=== PATIENT | male | born 1995 | race Caucasian/White ===

== ENCOUNTER 2018-01-26 18:50 | Emergency (ER) | payer OTHER, MEDICAID ==
[~2018-01-26] VITALS: Ht 172.7 cm; Wt 70.0 kg
[2018-01-26] MEDS ORDERED: SODIUM CHLORIDE 0.9% 100 ML IV ONE (21:30)
[2018-01-26] MEDS ORDERED: SODIUM CHLORIDE 0.9% 1,000 ML IV ONE (22:15)
[2018-01-26 22:51] LABS: *AMPHETAMINES SCREEN URINE NEGATIVE (NEGATIVE); *BARBITURATES SCREEN URINE NEGATIVE (NEGATIVE); *BENZODIAZEPINES SCREEN URINE NEGATIVE (NEGATIVE)
[2018-01-26 22:52] LABS: *COCAINE SCREEN URINE NEGATIVE (NEGATIVE); CANNABINOID URINE SCREEN PRESUMTIVE POSITIVE (NEGATIVE); METHADONE URINE SCREEN NEGATIVE (NEGATIVE); OPIATES URINE SCREEN NEGATIVE (NEGATIVE); PHENCYCLIDINE URINE SCREEN NEGATIVE (NEGATIVE)
[2018-01-26] MEDS: LORAZEPAM 2MG/ML CPJ IV NR (23:13)
[2018-01-26 23:23] LABS: BASOPHILS % 0.8 % (0.0-2.0); LYMPHOCYTES % 30.8 % (20.0-50.0); MEAN CORPUSCULAR HEMOGLOBIN 28.1 pg (28.0-32.0); MEAN CORPUSCULAR VOLUME 82.8 fL (80.0-94.0); MEAN PLATELET VOLUME 9.1 fl (7.4-10.4); MONOCYTES % 7.3 % (2.0-8.0); NEUTROPHILS % 60.1 % (40.0-76.0); PLATELET 210 x1000/uL (130-400); RED BLOOD CELL COUNT 5.32 mill/uL (4.7-6.1); RED CELL DISTRIBUTION WIDTH 12.9 % (11.6-14.6)
[2018-01-26 23:27] LABS: CHLORIDE 109 mEq/L (98-107)
[2018-01-27 02:00] VITALS: BP 136/76
== END 2018-01-27 02:00 | disposition home or self-care (01) ==
LOC: ER 21:01
DX: T40.7X1A Poisoning by cannabis (derivatives), accidental (unintentional), initial encounter (principal); Y92.9 Unspecified place or not applicable; F12.90 Cannabis use, unspecified, uncomplicated; F23 Brief psychotic disorder
CPT/HCPCS: 36415; 80048; 80305; 85025; 96374; 99284; G0482; J2060; J7030; Z7610; J7050